=== PATIENT | male | born 1975 | race Native Hawaiian/Other Pacific Islander ===

== ENCOUNTER 2018-06-08 22:21 | Emergency (ER) | payer OTHER ==
[~2018-06-08] VITALS: Ht 180.3 cm; Wt 124.7 kg
[2018-06-09 01:24] VITALS: BP 152/88; TEMP 98.1
== END 2018-06-09 01:26 | disposition home or self-care (01) ==
LOC: ED 22:21
DX: J40 Bronchitis, not specified as acute or chronic (principal)
CPT/HCPCS: 87502; 99283